=== PATIENT | female | born 1990 | race Caucasian/White ===

== ENCOUNTER 2016-04-30 13:09 | Emergency (ER) | payer BC ==
[~2016-04-30] VITALS: Ht 175.3 cm; Wt 111.0 kg
[2016-04-30 13:15] VITALS: TEMP 36.9; Ht 175.3 cm; Wt 111.0 kg
[2016-04-30] MEDS ORDERED: ATEN-173 PO (13:23)
[2016-04-30] MEDS ORDERED: SERT50TA PO (13:23)
[2016-04-30] MEDS ORDERED: LISI-461 PO (13:23)
[2016-04-30 14:19] VITALS: BP 148/67; PULSE 46; O2SAT 97
--- NOTE | 2016-05-02 10:53 | EMERGENCY ROOM VISIT NOTE ---
ED Visit Note First contact with patient: 13:47 Chief Complaint: Head injury. History of Present Illness: Ms. Lewis is a 25-year-old white female who ambulates into the ED complaining of a possible head injury. Patient reports 2 days ago she was playing with her dog on the bed and went to lay backwards and struck her head on the frame of her bed. She reports at the time of the injury she did not have loss of consciousness but did have some mild dizziness. Since that time she reports that she has been feeling lightheaded and has had a moderate headache. She describes her headache as a achy and pressure sensation in the area where she struck her head in the right parietal area. She rates her discomfort 3/10. Her pain is nonradiating. She has not identified any aggravating or alleviating factors related to the pain. She has not taken any medications for pain prior to arrival at the hospital. Associated with her pain she still feels lightheaded but also reports that she has been intermittently nauseated without vomiting and she is having difficulty concentrating. She denies visual changes, hearing changes, difficulty speaking, difficulty swallowing, difficulty ambulating/coordinating body movements, neck pain, back pain, chest pain, shortness of breath, abdominal pain,, extremity weakness/ numbness/tingling Review of Systems: As noted above in history of present illness. All body systems were reviewed and found to be negative as noted above. Past Medical History: Hypertension, anxiety, migraine headaches, vitamin D deficiency, status post tonsillectomy. Current Medications: Atenolol, Zestril, Zoloft. Allergies to Medications: Patient denies. Social History: Patient is currently in University student; she feels safe in her home environment; she denies tobacco and alcohol use. Physical Examination: Vital Signs: Date Time Temp Pulse Resp B/P Pulse Ox O2 Delivery O2 Flow Rate FiO2 04/30/16 14:19 46 148/67 97 Room Air 04/30/16 13:15 36.9 56 18 165/69 95 Room Air GENERAL: 25-year-old female in mild distress due to pain, nontoxic-appearing, afebrile and hemodynamically stable. NEUROLOGICAL: Awake, alert and oriented to person, place and time. Answering questions appropriately and following commands. Normal gait. Good hand eye coordination. No focal motor or sensory deficits. Cranial nerves II through XII grossly intact. Romberg test negative. Pronator drift is negative. Short- term and long-term recall. Normal rapid alternating movements of the hands and fingers. Normal heel kate test. White count distal backwards. Face o'clock. SKIN: Warm, dry and pink. No soft tissue trauma noted. HEENT: Atraumatic and normocephalic. PERRLA. EOMI without nystagmus. Sclera white and conjunctiva pink. No drainage from naris. Oral cavity moist and pink. Pharynx is nonerythematous or edematous. Speech normal. No lymphadenopathy. Trachea midline. No jugular venous distention. BACK: No tenderness over the bony cervical and thoracic spine. Full ROM of the cervical spine. THORAX: Lungs sounds are clear to auscultation and equal bilaterally with symmetrical chest wall. ABDOMEN: Flat, soft and nontender. Positive bowel sounds in all quadrants. No guarding, rigidity or organomegaly. EXTREMITIES: Moves all extremities well on command and with purpose. All distal neurovascular statuses are intact and equal bilaterally. 5/5 muscle strength in all extremities. ED Course: Patient is assessed as noted above. Lengthy conversation with the patient about the risks and benefits of CT scan without neurological examination. I did offer her a CT scan or a watch and wait approach and she accepted the watch and wait approach. I did offer her medication for pain and she refused. Patient was educated about tonight's findings and instructed on her treatment plan; she verbalizes understanding and agreement with this plan. Clinical Impression: Possible closed head injury. Disposition: Patient discharged home in stable condition; prior to departure she was reassessed and subjectively reported she was feeling better and reported she was pain-free. Plan: Patient was encouraged to use 650 mg of acetaminophen every 6 hours as needed for pain. Patient was encouraged to use ice over areas of pain 5-6 times a day for 20 minutes. Patient was encouraged to avoid alcohol use. Patient was educated on signs of worsening head injury. Patient was encouraged return the ED for signs of worsening head injury or any new/concerning symptoms.
== END 2016-04-30 14:24 | disposition home or self-care (01) ==
LOC: C.EDB 13:11 → C.EDD 14:24
DX: R51 Headache (principal); R42 Dizziness and giddiness; I10 Essential (primary) hypertension; F41.9 Anxiety disorder, unspecified

== ENCOUNTER → 2016-06-20 | Outpatient (CLI) | payer BC ==
[~2016-06-20] MED LIST: ATEN-173 PO; LISI-461 PO; SERT50TA PO
[2016-06-20 09:38] LABS: BASO % 0.5 %; BASO ABS # 0.04 K/uL (0-0.2); COMPLETE YES; EOS % 12.3 %; HEMATOCRIT 39.9 % (37-47); IG% 0.1 %; LYMPH ABS # 2.15 K/uL (1.2-3.4); MEAN CELL VOLUME 85.3 fL (80-100); MEAN CORPUSCULAR HEMOGLOBIN 26.9 pg (25-34); MEAN CORPUSCULAR HGB CONC 31.6 g/dl (32-36); MEAN PLATELET VOLUME 10.9 fL (7.4-10.4); MONO % 4.6 %; NEUT % 54.5 %; PLATELET COUNT 263 K/uL (130-400); RED BLOOD COUNT 4.68 M/uL (4.2-5.4); WHITE BLOOD COUNT 7.67 K/uL (4.8-10.8)
[2016-06-20 10:49] LABS: BLOOD UREA NITROGEN 11 mg/dl (7-18); CALCIUM 9.3 mg/dl (8.5-10.1); CARBON DIOXIDE 27 mmol/L (21-32); CHLORIDE 106 mmol/L (98-107); CHOLESTEROL 222 mg/dl (0-200); CREATININE 0.76 mg/dl (0.60-1.20); GLUCOSE 91 mg/dl (70-99); POTASSIUM 4.1 mmol/L (3.5-5.1); SODIUM 139 mmol/L (136-145); TRIGLYCERIDES 375 mg/dl (0-150); VERY LOW DENSITY LIPOPROT CALC 75 mg/dl
[2016-06-20 11:00] LABS: CHOLESTEROL/HDL RATIO 5.3; HDL CHOLESTEROL 42 mg/dl; LDL CHOLESTEROL CALCULATED 105 mg/dl
== END | disposition home or self-care (01) ==
LOC: C.LAB1850 07:55
PROVIDERS: ATTEND Nurse Practitioner Adult Health
DX: I10 Essential (primary) hypertension (principal); E55.9 Vitamin D deficiency, unspecified; F41.9 Anxiety disorder, unspecified